=== PATIENT | male | born 1945 | race Caucasian/White ===

== ENCOUNTER 2017-12-22 09:08 | Outpatient (CLI) | payer OTHER ==
[2017-12-22 17:55] LABS: BASOPHILS % (AUTO) 0.8 %; EOSINOPHILS # (AUTO) 0.1 10^3/uL (0.0-0.7); EOSINOPHILS % (AUTO) 3.7 %; HGB - HEMOGLOBIN 14.4 g/dL (14.0-18.0); LYMPHOCYTES # (AUTO) 1.2 10^3/uL (1.5-3.5); LYMPHOCYTES % (AUTO) 33.1 %; MEAN CORPUSCULAR HEMOGLOBIN 31.7 pg (27.0-31.0); MEAN CORPUSCULAR HGB CONC 33.8 g/dL (32.0-36.0); MEAN PLATELET VOLUME 9.5 fL (7.4-11.4); MONOCYTES # (AUTO) 0.5 10^3/uL (0.0-1.0); MONOCYTES % (AUTO) 12.5 %; NEUTROPHILS # (AUTO) 1.8 10^3/uL (1.5-6.6); NEUTROPHILS % (AUTO) 49.9 %; PLT - PLATELET COUNT 189 10^3/uL (130-450); RED BLOOD COUNT 4.52 10^6/uL (4.70-6.10); RED CELL DISTRIBUTION WIDTH 15.2 % (12.0-15.0); WHITE BLOOD COUNT 3.7 x10^3/uL (4.8-10.8)
[2017-12-22 18:14] LABS: ALBUMIN 3.9 g/dL (3.2-5.5); ALBUMIN/GLOBULIN RATIO 1.4 (1.0-2.2); BILIRUBIN,TOTAL 1.3 mg/dL (0.2-1.0); CALCIUM 9.1 mg/dL (8.5-10.3); CREATININE 0.9 mg/dL (0.6-1.2); TOTAL PROTEIN 6.6 g/dL (6.7-8.2)
== END 2017-12-22 09:09 | disposition home or self-care (01) ==
LOC: LAB.F 09:08
PROVIDERS: ATTEND Physician Assistant Medical
DX: Z51.81 Encounter for therapeutic drug level monitoring (principal); Z12.5 Encounter for screening for malignant neoplasm of prostate
CPT/HCPCS: 36415; 80053; 84153; 85025

== ENCOUNTER 2018-01-05 10:42 | Outpatient (CLI) | payer OTHER ==
--- NOTE | 2018-01-05 12:59 | Ultrasound Report ---
Reason: RIGHT INGUINAL HERNIA Procedure Date: 01/05/2018 Accession Number: [id number] / [id number] Procedure: US - Pelvic Limited or F/U CPT Code: FULL RESULT: EXAM: LIMITED ABDOMINAL ULTRASOUND EXAM DATE: 01/05/2018 11:36 AM. CLINICAL HISTORY: Right inguinal hernia. COMPARISON: None. TECHNIQUE: Real-time scanning was performed of the right lower quadrant with static images obtained. FINDINGS: A reducible fat-containing direct right inguinal hernia is identified. Other: None. IMPRESSION: Reducible fat-containing direct right inguinal hernia. RADIA
== END 2018-01-05 10:43 | disposition home or self-care (01) ==
LOC: DI 10:42
PROVIDERS: ATTEND Physician Assistant Medical
DX: K40.90 Unilateral inguinal hernia, without obstruction or gangrene, not specified as recurrent (principal)
CPT/HCPCS: 76857

== ENCOUNTER 2018-05-05 09:32 | Outpatient (CLI) | payer OTHER | END 2018-05-05 09:33 | disposition home or self-care (01) | LOC: SC 09:32 | PROVIDERS: ATTEND Internal Medicine Pulmonary Disease | DX: R06.81 Apnea, not elsewhere classified (principal); G47.8 Other sleep disorders; R06.83 Snoring; G47.00 Insomnia, unspecified | CPT/HCPCS: 99203; 99212 ==

== ENCOUNTER 2018-05-26 20:47 | Outpatient (CLI) | payer OTHER | END 2018-05-26 20:48 | disposition home or self-care (01) | LOC: SC 20:47 | PROVIDERS: ATTEND Internal Medicine Pulmonary Disease | DX: G47.61 Periodic limb movement disorder (principal); I48.91 Unspecified atrial fibrillation | CPT/HCPCS: 95810 ==

== ENCOUNTER 2018-06-29 10:37 | Outpatient (CLI) | payer OTHER | END 2018-06-29 10:38 | disposition home or self-care (01) | LOC: SC 10:37 | PROVIDERS: ATTEND Nurse Practitioner Family | DX: I48.91 Unspecified atrial fibrillation (principal); R06.83 Snoring; G47.61 Periodic limb movement disorder; G47.00 Insomnia, unspecified | CPT/HCPCS: 99212; 99215 ==

== ENCOUNTER 2018-08-13 09:06 | Outpatient (CLI) | payer OTHER ==
[2018-08-13 17:38] LABS: BASOPHILS % (AUTO) 0.9 %; EOSINOPHILS # (AUTO) 0.1 10^3/uL (0.0-0.7); EOSINOPHILS % (AUTO) 2.4 %; LYMPHOCYTES # (AUTO) 1.2 10^3/uL (1.5-3.5); LYMPHOCYTES % (AUTO) 37.2 %; MEAN CORPUSCULAR HEMOGLOBIN 31.4 pg (27.0-31.0); MEAN CORPUSCULAR VOLUME 95.2 fL (80.0-94.0); MEAN PLATELET VOLUME 10.6 fL (7.4-11.4); MONOCYTES # (AUTO) 0.3 10^3/uL (0.0-1.0); MONOCYTES % (AUTO) 10.9 %; NEUTROPHILS # (AUTO) 1.5 10^3/uL (1.5-6.6); NEUTROPHILS % (AUTO) 48.6 %; PLT - PLATELET COUNT 172 10^3/uL (130-450); RED BLOOD COUNT 4.78 10^6/uL (4.70-6.10); RED CELL DISTRIBUTION WIDTH 15.3 % (12.0-15.0); WHITE BLOOD COUNT 3.1 x10^3/uL (4.8-10.8)
[2018-08-13 17:54] LABS: % IRON SATURATION 34 % (20-50); ALBUMIN 4.2 g/dL (3.2-5.5); ALBUMIN/GLOBULIN RATIO 1.6 (1.0-2.2); ALKALINE PHOSPHATASE 46 IU/L (42-121); ALT ALANINE AMINOTRANSFERASE 18 IU/L (10-60); AST ASPARTATE AMINOTRANSFERASE 22 IU/L (10-42); BILIRUBIN,TOTAL 1.5 mg/dL (0.2-1.0); BUN - BLOOD UREA NITROGEN 25 mg/dL (6-20); CALCIUM 9.2 mg/dL (8.5-10.3); CARBON DIOXIDE - CO2 27 mmol/L (21-32); CHLORIDE 104 mmol/L (101-111); CHOL/HDL RATIO 2.5 (<5.0); CHOLESTEROL 196 mg/dL; GFR - MDRD 73 (>89); GLUCOSE 110 mg/dL (70-100); HDL CHOLESTEROL 78 mg/dL; IRON 118 ug/dL (45-182); SODIUM 139 mmol/L (135-145); TOTAL IRON BINDING CAPACITY 349 ug/dL (250-450); TOTAL PROTEIN 6.9 g/dL (6.7-8.2); TRANSFERRIN 249 mg/dL (180-329)
[2018-08-13 17:57] LABS: THYROID STIMULATING HORMONE 1.68 uIU/mL (0.34-5.60)
[2018-08-13 18:04] LABS: PLATELET MORPHOLOGY 1+ GIANT PLATELETS (NORMAL); RBC MORPHOLOGY (MULTIPLE) NORMAL APPEARANCE (NORMAL)
[2018-08-13 18:05] LABS: PLATELET ESTIMATE, MANUAL NORMAL (130-450,000) (NORMAL)
[2018-08-13 18:08] LABS: FOLATE 21.12 ng/mL (5.90 - >24.8)
== END 2018-08-13 09:07 | disposition home or self-care (01) ==
LOC: LAB.F 09:06
PROVIDERS: ATTEND Physician Assistant Medical
DX: R53.83 Other fatigue (principal); I48.91 Unspecified atrial fibrillation; Z79.899 Other long term (current) drug therapy; Z83.49 Family history of other endocrine, nutritional and metabolic diseases; G62.9 Polyneuropathy, unspecified; Z12.5 Encounter for screening for malignant neoplasm of prostate
CPT/HCPCS: 36415; 80053; 80061; 82607; 82728; 82746; 83540; 83721; 84153; 84443; 84466; 85025

== ENCOUNTER 2018-10-05 11:41 | Outpatient (CLI) | payer OTHER | END 2018-10-05 11:42 | disposition home or self-care (01) | LOC: DI 11:41 | PROVIDERS: ATTEND Internal Medicine | DX: I48.91 Unspecified atrial fibrillation (principal) | CPT/HCPCS: 93306 ==

== ENCOUNTER 2019-12-02 11:54 | Day surgery (SDC) | payer OTHER ==
[2019-12-02] MEDS ORDERED: LACTATED RINGERS 1,000 ML IV ONE ×2 (11:59→15:07)
[2019-12-02] MEDS ORDERED: MIDAZOLAM 2 MG/2 ML VIAL IVP ONE (14:19)
[2019-12-02] MEDS ORDERED: fentaNYL 250 MCG/5 ML VIAL IVP ONE (14:19)
[2019-12-02 15:54] VITALS: BP 110/64
== END 2019-12-02 11:55 | disposition home or self-care (01) ==
LOC: SDS 11:54
PROVIDERS: ATTEND Surgery
PROC: 0DJD8ZZ Inspection of Lower Intestinal Tract, Via Natural or Artificial Opening Endoscopic (ICD-10-PCS; principal; 2019-12-02 13:00)
DX: Z12.11 Encounter for screening for malignant neoplasm of colon (principal); K57.30 Diverticulosis of large intestine without perforation or abscess without bleeding; Z86.010 Personal history of colon polyps; I48.91 Unspecified atrial fibrillation; G47.9 Sleep disorder, unspecified; Z79.82 Long term (current) use of aspirin

== ENCOUNTER 2020-03-27 10:09 | Outpatient (CLI) | payer OTHER ==
--- NOTE | 2020-03-28 11:09 | SLEEP CARE CONSULTATION ---
Information from patient questionnaire entered by Raisa Ruggiero. I have reviewed and concur with the information entered by Raisa Ruggiero. This document represents the service I personally performed and the decisions made by me, Salomon Sotelo MD, [facility]. History of Present Illness Service Date and Time: 03/27/2020 1009 Reason for follow up: annual (restart process) Prior sleep studies: Yes Year and Where: 2019 - [facility] Type of Sleep Study: Polysomnography (negative - AHI - 3.7) HPI additional information: HPI: Mr. Lemos is a 73 year old gentleman who complains of sleep onset insomnia and returns today after last seen 2 years ago. His sleep study was negative for sleep-disordered breathing, although he did not sleep supine. Instead, he was found to have atrial fibrillation which he was not aware off. He reports going to bed at 11 pm and getting up at 7:30 am. His goes to bed about the same time but gets up earlier to play tennis. He wakes up 2 3 times during the night and has not difficulty falling back asleep. He takes Ambien at bedtime. He does not nap during the day. He is not sleepy. His [place] Sleepiness Scale score is 8 (normal). He wears an oral appliance at night for snore. He said he paid $3,000 for it. His snore is less loud on the oral appliance therapy. He would like to know if CPAP would be more beneficial. He continues to sleep only on his side at home because he cannot breathe as well lying on his back. Subjective Initial [place] Sleepiness Scale score: 6 (in 2019) Current [place] Sleepiness Scale score: 8 Allergies and Home Medications Drug allergies reviewed: Yes Home medication list reviewed: Yes Review of Systems Review of systems same as previous: Yes Cardiovascular: reports: irregular heart rate or pulse Urinary: reports: impotence Neurological: reports: gait or balance problems Ear/Nose/Throat: reports: nasal congestion, wisdom teeth removed Musculoskeletal: reports: joint pain Physical Exam Vital signs obtained and entered by: To minimize the risk of COVID-19 exposure, detailed exam was not performed. Height: 5 ft 10 in Weight: 175 lb Body Mass Index: 25.1 BMI Classification: Overweight Impression and Plan IMPRESSION: 1. Suspected Obstructive Sleep Apnea-Hypopnea Syndrome, as suggested by history of loud and irregular snoring, observed cessation of breath while asleep, and frequent awakenings during the night. The patient would like to have the sleep study repeated but would like to undergo a home sleep apnea test (HSAT) first. 2. Insomnia, mild, due partly to excessive time spent in bed. According to him, he averaged 7 hours of sleep a night throughout his life. Therefore, I advised him to delay his bed time to at least midnight and keep the wakeup time the same time at 7:30 am. On the other hand, if he wishes to go to bed time same time with his , then he must wake up the same time she does. Plan: 1. Schedule a home sleep apnea test (HSAT). Do not wear the oral applian ce for the test. Try to sleep supine part of the night if possible. He is aware that if the test is negative for sleep-disordered breathing, an in-laboratory polysomnography will be necessary. 2. Maintain a regular wake up time and spend no more than 7.5 hours in bed at night. Avoid naps. Visit Type: In Office Time Spent with Patient (minutes): 20 Provider Statement: I spent 100% of the Face to Face Visit with the patient with greater than 50% spent counseling the patient and coordination of care.
== END 2020-03-27 10:10 | disposition home or self-care (01) ==
LOC: SC 10:09
PROVIDERS: ATTEND Internal Medicine Pulmonary Disease
DX: R06.81 Apnea, not elsewhere classified (principal); G47.8 Other sleep disorders; G47.00 Insomnia, unspecified; R06.83 Snoring
CPT/HCPCS: 99212; 99213

== ENCOUNTER 2020-04-19 10:11 | Outpatient (CLI) | payer OTHER ==
[2020-04-19 16:19] LABS: BASOPHILS % (AUTO) 0.5 %; EOSINOPHILS # (AUTO) 0.1 10^3/uL (0.0-0.7); HGB - HEMOGLOBIN 15.2 g/dL (14.0-18.0); LYMPHOCYTES # (AUTO) 1.2 10^3/uL (1.5-3.5); LYMPHOCYTES % (AUTO) 30.5 %; MEAN CORPUSCULAR HEMOGLOBIN 31.7 pg (27.0-31.0); MEAN CORPUSCULAR HGB CONC 32.9 g/dL (32.0-36.0); MEAN CORPUSCULAR VOLUME 96.3 fL (80.0-94.0); MEAN PLATELET VOLUME 11.9 fL (7.4-11.4); MONOCYTES # (AUTO) 0.4 10^3/uL (0.0-1.0); MONOCYTES % (AUTO) 9.6 %; NEUTROPHILS # (AUTO) 2.3 10^3/uL (1.5-6.6); NEUTROPHILS % (AUTO) 57.2 %; PLT - PLATELET COUNT 204 10^3/uL (130-450); RED CELL DISTRIBUTION WIDTH 13.9 % (12.0-15.0); WHITE BLOOD COUNT 4.1 x10^3/uL (4.8-10.8)
[2020-04-19 17:05] LABS: ALBUMIN/GLOBULIN RATIO 1.5 (1.0-2.2); ALKALINE PHOSPHATASE 45 IU/L (42-121); ALT ALANINE AMINOTRANSFERASE 21 IU/L (10-60); AST ASPARTATE AMINOTRANSFERASE 25 IU/L (10-42); BILIRUBIN,TOTAL 1.7 mg/dL (0.2-1.0); BUN - BLOOD UREA NITROGEN 23 mg/dL (6-20); CALCIUM 9.2 mg/dL (8.5-10.3); CARBON DIOXIDE - CO2 23 mmol/L (21-32); CHLORIDE 104 mmol/L (101-111); CHOL/HDL RATIO 2.7 (<5.0); CHOLESTEROL 181 mg/dL; CREATININE 0.9 mg/dL (0.6-1.2); GLUCOSE 106 mg/dL (70-100); HDL CHOLESTEROL 67 mg/dL; LDL CHOLESTEROL,CALCULATED 102 mg/dL; LDL/HDL RATIO 1.5 (<3.6); TOTAL PROTEIN 6.7 g/dL (6.7-8.2); VLDL CHOLESTEROL 12 mg/dL
[2020-04-19 20:08] LABS: HEMOGLOBIN A1c% 5.5 % (4.27-6.07)
== END 2020-04-19 10:12 | disposition home or self-care (01) ==
LOC: LAB.S 10:11
PROVIDERS: ATTEND Physician Assistant
DX: Z00.00 Encounter for general adult medical examination without abnormal findings (principal); G47.00 Insomnia, unspecified; Z79.899 Other long term (current) drug therapy; R53.83 Other fatigue; I48.91 Unspecified atrial fibrillation; Z51.81 Encounter for therapeutic drug level monitoring; G47.9 Sleep disorder, unspecified; Z83.438 Family history of other disorder of lipoprotein metabolism and other lipidemia
CPT/HCPCS: 36415; 80053; 80061; 83036; 83721; 84443; 85025

== ENCOUNTER 2020-05-08 08:14 | Outpatient (CLI) | payer OTHER ==
[2020-05-08 16:47] LABS: FOLATE 21.32 ng/mL (5.90 - >24.8)
[2020-05-08 20:11] LABS: ESTIMATED AVERAGE GLUCOSE 111 mg/dL (70-100); HEMOGLOBIN A1c% 5.5 % (4.27-6.07)
[2020-05-10 12:58] LABS: ANA SCREEN NEGATIVE (NEGATIVE)
[2020-05-10 14:41] LABS: ABNORMAL PROTEIN BAND 1 0.5 g/dL (NONE DETECTED); ALBUMIN 4.2 g/dL (3.8-4.8); ALPHA 1 GLOBULIN 0.2 g/dL (0.2-0.3); ALPHA 2 GLOBULIN 0.4 g/dL (0.5-0.9); BETA 1 GLOBULIN 0.4 g/dL (0.4-0.6); BETA 2 GLOBULIN 0.2 g/dL (0.2-0.5)
[2020-05-10 22:36] LABS: CYCLIC CITRULL PEPTIDE CCP IGG <16 UNITS
[2020-05-11 18:56] LABS: METHYLMALONIC ACID 201 nmol/L (87-318)
== END 2020-05-08 08:15 | disposition home or self-care (01) ==
LOC: LAB.S 08:14
PROVIDERS: ATTEND Psychiatry & Neurology Neurology
DX: G62.9 Polyneuropathy, unspecified (principal)
CPT/HCPCS: 36415; 81599; 82607; 82746; 83036; 83921; 84155; 84165; 84207; 84425; 85651; 86038; 86140; 86200; 86334

== ENCOUNTER 2020-05-10 08:00 | Outpatient (CLI) | payer OTHER | END 2020-05-10 23:59 | disposition home or self-care (01) | LOC: LAB.S 08:00 | PROVIDERS: ATTEND Psychiatry & Neurology Neurology | DX: G62.9 Polyneuropathy, unspecified (principal) | CPT/HCPCS: 81599; 82570; 84156; 84166 ==

== ENCOUNTER 2020-07-12 09:14 | Outpatient (CLI) | payer OTHER | END 2020-07-12 09:15 | disposition home or self-care (01) | LOC: SC 09:14 | PROVIDERS: ATTEND Internal Medicine Pulmonary Disease | DX: G47.33 Obstructive sleep apnea (adult) (pediatric) (principal) | CPT/HCPCS: 95806 ==

== ENCOUNTER 2020-07-31 09:43 | Outpatient (CLI) | payer OTHER ==
--- NOTE | 2020-07-31 12:42 | SLEEP CARE CONSULTATION ---
Information from patient questionnaire entered by Raisa Ruggiero. I have reviewed and concur with the information entered by Raisa Ruggiero. This document represents the service I personally performed and the decisions made by me, Salomon Sotelo MD, [facility]. History of Present Illness Service Date and Time: 07/31/2020 0943 Initial [place] Sleepiness Scale score: 6 (in 2019) Additional HPI information: HPI: Mr. Lemos was called for follow up of the home sleep apnea test (HSAT) he had on 07/12/20. The test showed mild obstructive sleep apnea with an AHI of 5.5. and polo oxygen saturation of 89%. The respiratory events occurred almost exclusively during supine sleep. He did the test wearing his oral appliance. The patient was informed of these findings. I explained to him that he still has mild REUBEN despite wearing his oral appliance. He would like to try CPAP therapy. He continues to complain of insomnia. He has been taking Ambien every night for the past 3 months. Prior to that he was taking it occasionally. Sleep Study - Results Type of Sleep Study: Home sleep study Prior sleep studies: Yes (negative - AHI - 3.7) Year and Where: 2019 - [facility] Allergies and Home Medications Drug allergies reviewed: Yes Home medication list reviewed: Yes Review of Systems Review of systems same as previous: Yes Physical Exam Height: 5 ft 10 in Impression and Plan IMPRESSION: 1. Obstructive Sleep Apnea-Hypopnea Syndrome, mild, and positional. The sleep disordered breathing may or may not have anything to do with his insomnia. It is reasonable to try CPAP. 2. Insomnia, on currently present with the patient taking Ambien 5 mg every night. He actually has good sleep-wake schedule. Therefore, I do not think that he actually needs to take the medication. He most likely feels dependent on it. PLAN: 1. Prescription made for an autoCPAP with heated humidifier and other supplies. 2. Keep bedtime at 11 pm and wake up time no later than 6:15 am. 3. Continue with Ambien 5 mg for now. 4. Return for a follow up after using the CPAP for a month. Visit Type: Telehealth Video Video Type: VSee Patient Location: Home Location of Provider: Office Patient agrees and consents to this telehealth visit type: Yes Patient agrees to have their insurance billed: Yes Time Spent with Patient (minutes): 20 Provider Statement: I spent 100% of the Telehealth Video Call with the patient with greater than 50% spent counseling the patient and coordination of care.
== END 2020-07-31 09:44 | disposition home or self-care (01) ==
LOC: SC 09:43
PROVIDERS: ATTEND Internal Medicine Pulmonary Disease
DX: G47.33 Obstructive sleep apnea (adult) (pediatric) (principal); G47.00 Insomnia, unspecified

== ENCOUNTER 2020-10-31 07:58 | Outpatient (CLI) | payer OTHER ==
[2020-10-31 08:52] VITALS: BP 106/72
--- NOTE | 2020-10-31 08:52 | SLEEP CARE CONSULTATION ---
Information from patient questionnaire entered by Raisa Ruggiero. I have reviewed and concur with the information entered by Raisa Ruggiero. This document represents the service I personally performed and the decisions made by , Tresa Callahan ARNP. History of Present Illness Service Date and Time: 10/31/2020 0758 Previous diagnosis: Mild, Obstructive Sleep Apnea-Hypopnea Syndrome AHI: 5.5 (in 2020) Reason for follow up: first compliance Equipment type: CPAP Equipment obtained from: [employer] (got initial supplies) Mask style: Nasal Backup mask available: No Prior sleep studies: Yes Year and Where: 2020 and 2018(PSG - 3.7) - [facility] Type of Sleep Study: Home sleep study HPI additional information: ARNULFO CHAN was diagnosed to have mild, AHI 5.5, obstructive sleep apnea-hypopnea syndrome and returned today for CPAP therapy first compliance follow-up. CPAP Compliance Data - Data Reviewed with Patient Average duration of nightly device use: 19 mins 17 secs Compliance rate %: 0 (30 days) Current pressure setting (cmH2O): 5-15 (mean 5.2, avg 6.0) Humidity settin Average residual AHI: 4.3 Average large leak: 0 secs Subjective Patient concerns: reports: mask discomfort. denies: aerophagia, air blowing in eyes, mask leak noise, condensation in mask/hose, nasal congestion, dry mouth, nose, throat, epistaxis, other Current pressure setting perceived as: comfortable On therapy, patient: reports: other (hasn't used enough to tell a difference) Initial [place] Sleepiness Scale score: 6 (in 2019) Current [place] Sleepiness Scale score: 5 Allergies and Home Medications Home medication list reviewed: Yes (no changes) Review of Systems Review of systems same as previous: Yes (no changes) Physical Exam Blood Pressure: 106/72 Cuff size: wrist Heart Rate: 75 O2 Saturation: 95 Height: 5 ft 10 in Weight: 176 lb Body Mass Index: 25.2 BMI Classification: Overweight Impression and Plan 1. Obstructive Sleep Apnea-Hypopnea Syndrome, mild, with poor treatment compliance and good apnea control. Patient has not been able to use his CPAP because the mask is not fitting well and when he breathes he feels the rubber is sucked up over his nostrils and he is unable to breathe. We reviewed some masks and he may do better with a mask like the F20 Airfit mask. I will write for this, patient knows that since he has not reached compliance he may have to pay out of pocket for this change. We discussed in depth about his oral appliance that he was using prior to CPAP. He is comfortable with using this modality but would like to continue trying to get used to the CPAP therapy at this time. I will adjust his pressure to reflect what pressures he has used to 5-8 cmH2O. Patient to let me know it the change is uncomfortable. Patient's apnea severity and rationale for treatment to reduce apnea, improve sleep quality and reduce cardiovascular and cerebrovascular events was reviewed. I also reviewed the benefit of consistent device use of CPAP for arrhythmia. * Try a F20 Airfit mask * Change auto CPAP pressure to 5-8 cmH2O * Notify me if snoring with mask or feeling that the pressure is too much or too little * Call this office if any problems using CPAP * Return for follow up in 1-2 months, or sooner if concerns arise Counseling Topics: Weight control Visit Type: In Office Time Spent with Patient (minutes): 38 Provider Statement: I spent 100% of the Face to Face Visit with the patient with greater than 50% spent counseling the patient and coordination of care.
== END 2020-10-31 07:59 | disposition home or self-care (01) ==
LOC: SC 07:58
PROVIDERS: ATTEND Nurse Practitioner Family
DX: G47.33 Obstructive sleep apnea (adult) (pediatric) (principal)
CPT/HCPCS: 99212; 99214

== ENCOUNTER 2021-12-12 08:47 | Day surgery (SDC) | payer OTHER ==
[2021-12-12] MEDS ORDERED: NS IV ONE (09:08)
[2021-12-12] MEDS ORDERED: CEFAZOLIN IV ONE (09:08)
[2021-12-12] MEDS ORDERED: LACTATED RINGERS 1,000 ML IV ONE ×2 (09:19→11:25)
[2021-12-12] MEDS ORDERED: BUPIVACAINE 0.5% PF 30 ML VIAL ONE (09:49)
[2021-12-12] MEDS ORDERED: CEFAZOLIN 2G/50ML 0.9% NS 2 GM/50 ML BAG IV ONE (09:52)
--- NOTE | 2021-12-12 09:54 | ANESTHESIA ---
Pre-Anesthesia VS, & Labs - Diagnosis right inguinal hernia - Procedure right inguinal hernia repair with mesh Vital Signs: Temp Pulse Resp BP Pulse Ox O2 Flow Rate 36.5 C 56 L 15 107/76 98 12/12/21 09:08 12/12/21 09:08 12/12/21 09:08 12/12/21 09:08 12/12/21 09:08 Height: 5 ft 10 in Weight (kg): 79.2 kg Body Mass Index: 25.0 BMI Classification: Overweight - NPO >8 hours Home Medications and Allergies Home Medications: Ambulatory Orders Apixaban [Eliquis] 5 mg PO BID 12/10/21 Celecoxib [Celebrex] 200 mg PO DAILY 12/01/19 Valacyclovir HCl [Valtrex] 500 mg PO DAILY 12/01/19 Apixaban [Eliquis] 5 mg PO BID 12/10/21 Allergies/Adverse Reactions: Allergies Allergy/AdvReac Type Severity Reaction Status Date / Time No Known Drug Allergies Allergy Verified 12/01/19 15:10 Anes History & Medical History - Anesthetic History Anesthesia Complications: reports: No previous complications - Medical History Cardiovascular: reports: Atrial fibrillation Pulmonary: reports: Sleep apnea (does not use cpap) Gastrointestinal: reports: None Urinary: reports: Benign prostate hypertrophy Neuro: reports: None Musculoskeletal: reports: Osteoarthritis Endocrine/Autoimmune: reports: None Skin: reports: Other Smoking Status: Never smoker Psychosocial: reports: Alcohol (2 glasses of wine per day) History of Cancer?: Yes (melanoma) - Surgical History General: reports: Colonoscopy Urologic: reports: Prostatic surgery Orthopedic: reports: Hip replacement Exam General: Alert, Oriented x3, Cooperative, No acute distress Dental: WNL Mouth Openin Fingerbreadth Neck Mobility: Normal Mallampati classification: II Thyromental Distance: 4-6 cm Mental/Cognitive Status: Alert/Oriented X3, Normal for patient Plan Anesthesia Type: General Consent for Procedure(s) Verified and Reviewed: Yes Code Status: Attempt Resuscitation ASA classification: 2-Mild systemic disease Is this case an emergency?: No
[2021-12-12] MEDS ORDERED: MORPHINE 2 MG/ML CARPUJECT IVP PRN (09:55)
[2021-12-12] MEDS ORDERED: NALOXONE 0.4 MG/ML VIAL IVP PRN (09:55)
[2021-12-12] MEDS ORDERED: ATROPINE ABBOJECT 1 MG/10 ML SYRINGE IVP PRN (09:55)
[2021-12-12] MEDS ORDERED: ONDANSETRON 4 MG/2 ML VIAL IVP PRN ×2 (09:55→11:40)
[2021-12-12] MEDS ORDERED: fentaNYL 100 MCG/2 ML VIAL IVP PRN (09:55)
[2021-12-12] MEDS ORDERED: HYDROmorphone 0.5 MG/0.5 ML SYRINGE IVP PRN ×2 (09:55→11:40)
[2021-12-12] MEDS ORDERED: LACTATED RINGERS 1,000 ML IV SCH (10:00)
[2021-12-12] MEDS ORDERED: PROPOFOL 200 MG/20 ML VIAL IVP ONE (10:14)
[2021-12-12] MEDS ORDERED: ePHEDrine 50 MG/ML VIAL IVP ONE (10:38)
[2021-12-12] MEDS ORDERED: BUPIVACAINE 0.5% PF 30 ML VIAL INFIL ONE (10:47)
[2021-12-12] MEDS ORDERED: PHENYLEPHRINE 10 MG/ML VIAL ONE (10:53)
[2021-12-12] MEDS ORDERED: ATROPINE 0.4 MG/ML VIAL IVP ONE (10:58)
[2021-12-12] MEDS ORDERED: DEXAMETHASONE 4 MG/ML VIAL ONE (11:20)
[2021-12-12] MEDS ORDERED: HYDROcod/ACETAM 5/325 MG TABLET PO PRN (11:40)
--- NOTE | 2021-12-12 11:45 | OPERATIVE REPORT ---
Operative Report - General Procedure Date: 12/12/21 Planned Procedure: Direct inguinal herniorrhaphy with mesh Pre-Op Diagnosis: Direct right inguinal hernia Procedure Performed: Direct right inguinal herniorrhaphy and excision inguinal lymph node Post Op Diagnosis: Direct right inguinal hernia, inguinal lymphadenopathy - Procedure Note Primary Surgeon: Med Shaver MD Anesthesia Provider: Kvng Lomax CRNA Anesthesia Technique: General mask, Local (30 mL of half percent Marcaine) IV Fluids (mL): 800 Estimated Blood Loss (mL): 5 Drain/Tube Type: Other (None.) Indications: Symptomatic direct right inguinal hernia Findings: Small medially located direct right inguinal hernia and inguinal lymphadenopathy Complications: None. - Other Other Information/Narrative: After verbal and written informed consent was obtained detailing the operation, the alternatives the operation including no operation, risks of infection, bleeding requiring transfusion with its risks, nerve injury, and and after I met with the patient confirming the surgery and the site of surgery, the patient was brought to the operative suite and placed supine on the operating table. Great care was taken to avoid pressure points to prevent pressure necrosis or nerve injury. Monitoring devices were applied along with TEDs and pneumatic compression stockings (to prevent DVT). The patient received preoperative antibiotics for surgical prophylaxis. Kvng Lomax CRNA sedated and anesthetized the patient for the entire procedure. The patient was prepped and draped in the usual sterile manner. With the patient draped my initials were clearly visible. A "time in" then confirmed that the patient was identified with 3 identifiers (name, date, and medical record number), the history and physical was updated and in the chart, the signed consent confirming the procedure was in the chart, the patient was in the correct position, the aforementioned prophylactic measures were in place or given, we had the correct personnel and equipment to complete the procedure and that anesthesia and the surgical team were given an opportunity to express any concerns. With the agreement of everyone in the room we proceeded with the operation. After the inguinal area was injected with half percent Marcaine, anesthetizing the area, a standard inguinal incision was made and dissection was carried down to the external oblique aponeurosis using a combination of Metzenbaum scissors and Bovie electrocautery. Above and slightly inferior to the external oblique aponeurosis some lymphadenopathy was encountered and a lymph node was excised due to this somewhat unexpected finding.This was sent for pathologic evaluation. The external oblique aponeurosis was cleared of overlying adherent tissue, and the external ring was delineated. The external oblique was incised with a scalpel and this incision was carried down to the external ring using Metzenbaum scissors. Care was taken not to injure the ilioinguinal nerve. Having exposed the inguinal canal, the cord structures were from the canal using blunt dissection and a Marlo drain was placed around the cord structures at the level of the pubic tubercle. This [place] drain was then used to retract the cord structures as needed. Adherent cremasteric muscle was dissected free from the cord using Bovie electrocautery. The cord was noted to be above the clearly defined direct inguinal hernia that was just lateral to the pubic tubercle. The inguinal hernia defect just admitte d the tip of my little finger and was filled with fat. This hernia sac was dissected back to the hernia defect and inverted back into the abdomen and a Bard mesh PerFix plug (reference #[id number], lot # [id number], use by date 2025-07-05) was obtained and after cutting some of the anterior leaflets to decrease the size of this plug inserted into the defect and secured to the edge of the defect using a running 2-0 PDS suture. The onlay patch was not required as this was a very small very well-defined direct hernia and examination of the remainder of the inguinal canal did not reveal any indirect hernia. The wound was examined, and meticulous hemostasis was obtained using Bovie electrocautery. The incision the external oblique was approximated using 3-0 Vicryl in a running fashion thus reforming the external ring. The skin incision was approximated with 4-0 Monocryl in a subcuticular fashion. The skin was cleaned of its prep and Dermabond was applied. At this point a timeout was performed that confirmed that all counts were correct x2, the procedure that was performed, the blood loss, the IV fluids administered, the patient's condition, and any concerns of the operating team had. Having tolerated the procedure well, the patient was taken recovery room in good and stable condition. Gentle downward traction ensured the testes were well seated in the scrotum. The plan is for outpatient discharge when the patient is adequately recovered. This document was created in part using voice recognition technology. Because of the inherent limitations of the system, occasional same sounding word substitutions and grammatical errors do occur and persist despite proofreading. Please read this document for content. CPT 75561 (hernia repair) CPT 21783 (inguinofemoral node biopsy or excision)
--- NOTE | 2021-12-12 12:07 | ANESTHESIA POST OP EVALUATION ---
Anesthesia Post Eval - Post Anesthesia Eval Vitals: Last Vital Signs Temp 36.9 C 12/12/21 12:00 Pulse 62 12/12/21 12:00 Resp 16 12/12/21 12:00 BP 112/68 12/12/21 12:00 Pulse Ox 99 12/12/21 12:00 O2 Flow Rate CV Function Including HR & BP: Stable Pain Control: Satisfactory Nausea & Vomiting: Negative Mental Status: Baseline Respiratory Status: Airway Patent Hydration Status: Satisfactory Anesthesia Complications: None
[2021-12-12 12:59] VITALS: BP 132/70
== END 2021-12-12 08:48 | disposition home or self-care (01) ==
LOC: SDS 08:47
PROVIDERS: ATTEND Surgery
PROC: 07BH0ZX Excision of Right Inguinal Lymphatic, Open Approach, Diagnostic (ICD-10-PCS; principal; 2021-12-12 09:45)
DX: K40.90 Unilateral inguinal hernia, without obstruction or gangrene, not specified as recurrent (principal); R59.0 Localized enlarged lymph nodes; G47.33 Obstructive sleep apnea (adult) (pediatric)
CPT/HCPCS: 38531; 49505; C1781; J0690; J7120

== ENCOUNTER 2022-07-26 18:37 | Outpatient (CLI) | payer OTHER ==
--- NOTE | 2022-07-26 23:11 | Ultrasound Report ---
PROCEDURE: Pelvic Limited or F/U INDICATIONS: UNIL INGUINAL HERNIA TECHNIQUE: Real-time transabdominal scanning was performed of the area of interest, with image documentation. C olor Doppler ultrasound was also utilized. COMPARISON: 01/05/2018 FINDINGS: Scanning was performed of the right inguinal region. There is a reducible fat-containing hernia seen, with the hernia neck measuring 1.6 cm. The herniated portion measures 4 x 1.7 cm. The hernia also po tentially contains bowel. An additional shadowing region can be seen within the right groin that measures approximately 4 cm. IMPRESSION: There is a reducible hernia seen, which contains at least fat and may also contain bowel. The herniat ed material is clearly larger than in 2018. Adjacent to the hernia, there is a shadowing region, which may be related to scarring or prior postop erative change. Surgical consultation is recommended. If clinically appropriate, a dedicated CT of the pelvis was restudied contrast may also be helpful fo r further evaluation. Reviewed by: Edward House MD on 07/26/2022 10:10 PM VICENTE Approved by: Edward House MD on 07/26/2022 10:10 PM VICENTE Station ID: [id number]
== END 2022-07-26 18:38 | disposition home or self-care (01) ==
LOC: DI 18:37
PROVIDERS: ATTEND Surgery
DX: K40.90 Unilateral inguinal hernia, without obstruction or gangrene, not specified as recurrent (principal)

== ENCOUNTER 2022-10-01 08:33 | Outpatient (CLI) | payer OTHER ==
[2022-10-01] MEDS ORDERED: iohexoL-300 100 ML VIAL ONE (09:12)
[2022-10-01] MEDS ORDERED: iohexoL-300 100 ML VIAL IVP ONE (09:39)
--- NOTE | 2022-10-01 15:48 | CT Report ---
PROCEDURE: PELVIS W INDICATIONS: RIGHT INGUINAL SWELLING CONTRAST: 100ml Omnipaque 300 TECHNIQUE: After the administration of intravenous contrast, a CT scan of the pelvis was performed. Images were recorded and evaluated at appropriate window settings. Reformats: axial MIP of the chest, coronal an d sagittal. For radiation dose reduction, the following was used: automated exposure control, adjustm ent of mA and/or kV according to patient size. COMPARISON: Ultrasound 07/26/2022 FINDINGS: Bowel and peritoneum: Visualized large and small bowel is non-dilated. Colonic diverticulosis is pre sent without definite evidence of acute diverticulitis. Vessels: Visualized abdominal aorta is nonaneurysmal. Reproductive organs: Not well evaluated by CT and partially obscured by hip arthroplasty artifact. Bladder: Partially obscured by hip arthroplasty artifact. Distended, otherwise no overt abnormality i dentified. Pelvic lymph nodes: No pelvic adenopathy by size criteria. Bones: Bilateral hip arthroplasty. Other: A right inguinal hernia is present containing fat, a small amount of free fluid, and the appen shelton. IMPRESSION: Right inguinal hernia. Reviewed by: Jorge L Veras MD on 10/01/2022 3:17 PM PDT Approved by: Jorge L Veras MD on 10/01/2022 3:17 PM PDT Station ID: [id number]
== END 2022-10-01 08:34 | disposition home or self-care (01) ==
LOC: DI 08:33
PROVIDERS: ATTEND Surgery
DX: K40.90 Unilateral inguinal hernia, without obstruction or gangrene, not specified as recurrent (principal)
CPT/HCPCS: 72193; Q9967

== ENCOUNTER 2022-11-26 06:30 | Day surgery (SDC) | payer OTHER ==
[2022-11-26] MEDS ORDERED: LACTATED RINGERS 1,000 ML IV ONE ×3 (06:41→09:11)
[2022-11-26] MEDS ORDERED: NALOXONE 0.4 MG/ML VIAL IVP PRN (07:03)
[2022-11-26] MEDS ORDERED: fentaNYL 100 MCG/2 ML VIAL IVP PRN (07:03)
[2022-11-26] MEDS ORDERED: HYDROmorphone 0.5 MG/0.5 ML SYRINGE IVP PRN ×2 (07:03→10:03)
[2022-11-26] MEDS ORDERED: ePHEDrine 50 MG/ML VIAL IVP PRN (07:03)
[2022-11-26] MEDS ORDERED: ATROPINE ABBOJECT 1 MG/10 ML SYRINGE IVP PRN (07:03)
[2022-11-26] MEDS ORDERED: ONDANSETRON 4 MG/2 ML VIAL IVP PRN ×2 (07:03→10:03)
--- NOTE | 2022-11-26 07:03 | ANESTHESIA ---
Pre-Anesthesia VS, & Labs - Diagnosis recurrent r inguinal hernia - Procedure r inguinal hernia repair Vital Signs: Temp Pulse Resp BP Pulse Ox O2 Flow Rate 36.2 C L 58 L 15 125/71 97 0 11/26/22 06:35 11/26/22 06:35 11/26/22 06:35 11/26/22 06:35 11/26/22 06:35 11/26/22 06:35 Height: 5 ft 10 in Weight (kg): 82 kg Body Mass Index: 25.9 BMI Classification: Overweight - NPO >8 hours - Lab Results Lab results reviewed: Yes Home Medications and Allergies Home Medications: Ambulatory Orders Arginine [l-Arginine] 500 mg PO DAILY 11/19/22 Ascorbic Acid [Vitamin C] 500 mg PO DAILY 11/19/22 Cyanocobalamin (Vitamin B-12) [Vitamin B-12] 1,000 mcg PO DAILY 11/19/22 Glucosamine/D3/Boswellia Janny [Glucosamine Complex-Vit D3 Cpt] 1 each PO DAILY 11/19/22 Magnesium Citrate 100 mg PO DAILY 11/19/22 Dorr-3/Dha/Epa/Fish Oil [Fish Oil 1,000 mg Softgel] 1 each PO DAILY 11/19/22 Vitamin E Mixed [Vitamin E] 400 unit PO DAILY 11/19/22 Celecoxib [Celebrex] 200 mg PO BID 12/01/19 Valacyclovir HCl [Valtrex] 1 gm PO DAILY 12/01/19 Apixaban [Eliquis] 5 mg PO BID 12/10/21 Arginine [l-Arginine] 500 mg PO DAILY 11/19/22 Ascorbic Acid [Vitamin C] 500 mg PO DAILY 11/19/22 Cyanocobalamin (Vitamin B-12) [Vitamin B-12] 1,000 mcg PO DAILY 11/19/22 Glucosamine/D3/Boswellia Janny [Glucosamine Complex-Vit D3 Cpt] 1 each PO DAILY 11/19/22 Magnesium Citrate 100 mg PO DAILY 11/19/22 Dorr-3/Dha/Epa/Fish Oil [Fish Oil 1,000 mg Softgel] 1 each PO DAILY 11/19/22 Vitamin E Mixed [Vitamin E] 400 unit PO DAILY 11/19/22 Allergies/Adverse Reactions: Allergies Allergy/AdvReac Type Severity Reaction Status Date / Time No Known Drug Allergies Allergy Verified 11/26/22 06:53 Anes History & Medical History - Anesthetic History Family history of Anesthesia Complications: Denies Family history of Malignant Hyperthermia: Denies - Medical History Cardiovascular: reports: Atrial fibrillation Pulmonary: reports: Sleep apnea Gastrointestinal: reports: None Urinary: reports: Benign prostate hypertrophy Neuro: reports: None Musculoskeletal: reports: Osteoarthritis Endocrine/Autoimmune: reports: None Blood Disorders: reports: None Skin: reports: Other Smoking Status: Never smoker Psychosocial: reports: No issues indicated - Surgical History General: reports: Colonoscopy, Other Urologic: reports: Prostatic surgery Orthopedic: reports: Hip replacement Exam General: Alert, Oriented x3, Cooperative Dental: WNL Mouth Openin Fingerbreadth Neck Mobility: Normal Mallampati classification: II Thyromental Distance: 4-6 cm Respiratory: Lungs clear Cardiovascular: Regular rate Plan Anesthesia Type: General Consent for Procedure(s) Verified and Reviewed: Yes Code Status: Attempt Resuscitation ASA classification: 2-Mild systemic disease Is this case an emergency?: No
[2022-11-26] MEDS ORDERED: BUPIVACAINE 0.25% PF 30 ML VIAL ONE (07:04)
[2022-11-26] MEDS ORDERED: BUPIVACAINE 0.5% PF 10 ML VIAL ONE ×2 (07:04→07:19)
[2022-11-26] MEDS ORDERED: ROCURONIUM 50 MG/5 ML VIAL ONE (07:27)
[2022-11-26] MEDS ORDERED: fentaNYL 100 MCG/2 ML VIAL ONE (07:27)
[2022-11-26] MEDS ORDERED: PROPOFOL 500 MG/50 ML 500 MG/50 ML VIAL ONE (07:27)
[2022-11-26] MEDS ORDERED: LIDOCAINE 1%-EPI 1:100000 20 ML MDV ONE ×2 (07:33→07:35)
[2022-11-26] MEDS ORDERED: LIDOCAINE 1%-EPI 1:100000 20 ML MDV SUBQ ONE (07:53)
[2022-11-26] MEDS ORDERED: PHENYLEPHRINE 10 MG/ML VIAL ONE (08:00)
[2022-11-26] MEDS ORDERED: LACTATED RINGERS 1,000 ML IV SCH (08:00)
--- NOTE | 2022-11-26 09:16 | OPERATIVE REPORT ---
Operative Report - General Procedure Date: 11/26/22 Planned Procedure: Recurrent RIGHT inguinal herniorrhaphy Pre-Op Diagnosis: Recurrent RIGHT inguinal hernia Procedure Performed: Recurrent RIGHT indirect sliding Amyands herniorrhaphy with mesh, excision cord lipoma, and explantation of old mesh Post Op Diagnosis: Recurrent RIGHT indirect sliding Amyands hernia, cord lipoma, mesh - Procedure Note Primary Surgeon: Med Shaver MD Anesthesia Provider: Tim Gloria CRNA Anesthesia Technique: General LMA, Local (40 mL of 1% lidocaine with epinephrine) IV Fluids (mL): 1,000 Estimated Blood Loss (mL): 5 Drain/Tube Type: Other (None.) Indications: Symptomatic recurrent RIGHT inguinal hernia Findings: See above. Complications: None. - Other Other Information/Narrative: After verbal and written informed consent was obtained detailing the operation, the alternatives the operation including no operation, risks of infection, bleeding requiring transfusion with its risks, nerve injury, and and after I met with the patient confirming the surgery and the site of surgery, the patient was brought to the operative suite and placed supine on the operating table. Great care was taken to avoid pressure points to prevent pressure necrosis or nerve injury. Monitoring devices were applied along with TEDs and pneumatic compression stockings (to prevent DVT). The patient received preoperative antibiotics for surgical prophylaxis. Tim Gloria CRNA sedated and anesthetized the patient for the entire procedure. The patient was prepped and draped in the usual sterile manner. With the patient draped my initials were clearly visible. A "time in" then confirmed that the patient was identified with 3 identifiers (name, date, and medical record number), the history and physical was updated and in the chart, the signed consent confirming the procedure was in the chart, the patient was in the correct position, the afor ementioned prophylactic measures were in place or given, we had the correct personnel and equipment to complete the procedure and that anesthesia and the surgical team were given an opportunity to express any concerns. With the agreement of everyone in the room we proceeded with the operation. A standard inguinal incision was made tracing the previous incision and dissection was carried down to the external oblique aponeurosis using a combination of Metzenbaum scissors and Bovie electrocautery. The external oblique aponeurosis was cleared of overlying adherent tissue, and the external ring was delineated. The external oblique was incised with a scalpel and this incision was carried down to the external ring using Metzenbaum scissors. Care was taken not to injure the ilioinguinal nerve. Having expose the inguinal canal, the cord structures were from the canal using blunt dissection and a Marlo drain was placed around the cord structures at the level of the pubic tubercle. This [place] drain was then used to retract the cord structures as needed. Adherent cremasteric muscle was dissected free from the cord using Bovie electrocautery. Dense scarring was taken down using Bovie electrocautery. The previously placed mesh plug was noted to be emanating from the medial portion of the inguinal canal and this was excised using Bovie electrocautery. There was no reason to send this to pathology. The cord was then explored using a combination of sharp and blunt dissection, and an indirect sac was found with the appendix within it. A pursestring suture of 2-0 PDS was placed distal to the attached bowel as this was a sliding hernia and this was cinched tight, tied, and the extra sac excised using Metzenbaum scissors. The stump was cauterized with Bovie electrocautery. The stump was then allowed to withdrawal back into the abdomen. An extra large PerFix plug (reference #[id number], lot #[id number], and use by date 05-07) was then inserted into the internal ring and secured to the edge of the internal ring using a figure of eight 2-0 PDS. Dissection along the cord structures found a lipoma that was dissected back to the internal ring, ligated with 3-0 Vicryl, transected, and the stump cauterized and allowed to retract back into the abdomen. This was not sent to pathology (not necessary - clearly lipoma). The PerFix onlay patch was then secured to the pubic tubercle with two 2 0-PDS U stitches. The superior stich was used to secure the mesh to the conjoined tendon superiorly using a running stitch and the inferior stitch was used to secure the mesh to the shelving edge of Poupart's ligament using a running stitch. Both of the stitches were run beyond the internal ring and the mesh was secured around the cord structures loosely with these 2 sutures thus creating a new internal ring. The Marlo drain was then removed. Meticulous hemostasis was obtained using Bovie electrocautery. The wound was then injected superficially and deep using 40 mL of 1% lidocaine with epinephrine. The incision the external oblique was approximated using 3-0 Vicryl in a running fashion thus reforming the external ring. Alex's fascia was approximated using an interrupted 4-0 Monocryl. The skin incision was approximated with 4-0 Monocryl in a subcuticular fashion. The skin was cleaned of its prep and Dermabond was applied. At this point a timeout was performed that confirmed that all counts were correct x2, the procedure that was performed, the blood loss, the IV fluids administered, the patient's condition, and any concerns of the operating team had. Having tolerated the procedure well, the patient was taken recovery room in good and stable condition. Gentle downward traction ensured the testes were well seated in the scrotum. The plan is for outpatient discharge when the patient is adequately recovered. This document was created in part using voice recognition technology. Because of the inherent limitations of the system, occasional same sounding word substitutions and grammatical errors do occur and persist despite proofreading. Please read this document for content. This can be coded [place] a [address] [place] [id number] sliding inguinal hernia. I will be coding it [place] [id number]. Excision cord lipoma [id number].
[2022-11-26] MEDS ORDERED: HYDROcod/ACETAM 5/325 MG TABLET PO PRN (10:03)
[2022-11-26 10:28] VITALS: BP 98/71; O2SAT 93
--- NOTE | 2022-11-26 15:14 | ANESTHESIA POST OP EVALUATION ---
Anesthesia Post Eval - Post Anesthesia Eval Vitals: Last Vital Signs Temp 36.3 C L 11/26/22 10:22 Pulse 72 11/26/22 10:22 Resp 16 11/26/22 10:22 BP 98/71 11/26/22 10:22 Pulse Ox 93 11/26/22 10:22 O2 Flow Rate 0 11/26/22 06:35 CV Function Including HR & BP: Stable Pain Control: Satisfactory Nausea & Vomiting: Negative Mental Status: Baseline Respiratory Status: Airway Patent Hydration Status: Satisfactory Anesthesia Complications: None
== END 2022-11-26 06:31 | disposition home or self-care (01) ==
LOC: SDS 06:30
PROVIDERS: ATTEND Surgery
DX: K40.91 Unilateral inguinal hernia, without obstruction or gangrene, recurrent (principal); D17.6 Benign lipomatous neoplasm of spermatic cord; G47.33 Obstructive sleep apnea (adult) (pediatric); Z79.01 Long term (current) use of anticoagulants; Z86.79 Personal history of other diseases of the circulatory system
CPT/HCPCS: 49520; 55520; J7120